=== PATIENT | female | born 1970 | race Caucasian/White ===

== ENCOUNTER 2019-09-17 22:33 | Inpatient (IN) | payer OTHER ==
[~2019-09-17] VITALS: Ht 162.6 cm; Wt 63.5 kg
--- NOTE | ~2019-09-17 | H ---
[facility] [address] [address] HISTORY AND PHYSICAL Name: AHMET ARBOLEDA Room #: 219-P ADM IN M.R.#: [id number] Admission: 09/17/19 Attend Phys: Jaquan Luna MD, Discharge: Date of : 68 Report #: [id number] THIS REPORT FOR: //name// CC: Dr. 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 Patient of Dr. Wu. She has been having stuttering chest pain for the last month or so and marked increase in fatigue. Tonight became markedly worse with sudden onset of burning in her chest and then pain and burning in her bilateral arms. Thought it was indigestion, but then subsequently came to the Emergency Room in [place] at [facility], had an inferior current of injury, consistent with an inferior wall STEMI. No prior cardiac history. She is a tobacco user and no significant family history. She takes no medications. Has occasionally taken albuterol in the past. HOME MEDICATIONS: Have been intermittently albuterol, cyclobenzaprine, ibuprofen, omeprazole, but not on a regular basis and 0.5 Xanax t.i.d. PAST MEDICAL HISTORY: Positive for bladder ablation, some anxiety, tobacco use, neck pain. FAMILY HISTORY: Negative for premature coronary artery disease. SOCIAL HISTORY: She is , 4 children. 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 Social drinker, a pack a day smoker. REVIEW OF SYSTEMS: Essentially negative except for stated above. There was a marked increase in fatigue last month or two. PHYSICAL EXAMINATION: GENERAL: Pleasant, alert. VITAL SIGNS: Blood pressure was 136/76, pulse was 60s and regular. HEENT: Eyes reveal xanthelasmas. Pharynx is clear. NECK: Shows preserved upstrokes without JVD or bruits. LUNGS: Slightly prolonged expiratory phase. CARDIOVASCULAR: Regular rate and rhythm. S1, S2 distant. ABDOMEN: Soft. No HSM or abdominal bruit, slightly tender in the epigastric area. EXTREMITIES: Reveal diminished distal pulses, but intact. NEUROLOGIC: Nonfocal. SKIN: Warm and dry without xanthoma or ulcer. [facility] [address] [place] [address] HISTORY AND PHYSICAL Name: AHMET ARBOLEDA [facility] M.R.#: [id number] Admission: 09/17/19 Attend Phys: Jaquan Luna MD, Discharge: Date of : 68 Report #: [id number] MUSCULOSKELETAL: No gross joint deformity. ASSESSMENT: 1. Acute inferior wall ST segment elevated myocardial infarction. 2. Continued tobacco use, suspected underlying chronic obstructive pulmonary disease. 3. Anxiety disorder. 4. Status post bladder ablation. RECOMMENDATIONS AND PLAN: Received heparin, aspirin and statin in [facility], is here by ground ambulance. Still with significant ST elevation in the inferior leads and anterior ST depression reciprocally. Pain is improved; however, with the heparin. Suspect there is some collateralization. Will go emergently to the brush clearing laborer and intervention is indicated. Risks, benefits, alternatives were discussed with the patient and we are proceeding, the family is en route. By: [id number] /nt
[2019-09-18] VITALS (15 sets, daily range): BP systolic 102–127; BP diastolic 57–75
[2019-09-18] MEDS ORDERED: XANAX 0.5 MG0.5 MG PO (01:04)
[2019-09-18] MEDS ORDERED: MELATONIN5 MG PO (01:05)
--- NOTE | 2019-09-18 02:43 | NUR ---
ADMIT:PT ADMITTED FROM [facility] AFTER A CARDIAC CATHERIZATION PROCEDURE WITH [facility].PT ARRIVED TO UNIT VIA BED ACCOMPANIED BY [facility].PT AWAKE,A/OX4,IN NO ACUTE DISTRESS.RIGHT GROIN W/O HEMATOMA OR ACTIVE BLEEDING.VSS.SINUS RHYTHM ON MONITOR.ON INTERGLIN DRIP AND NS INFUSIING.DR JULIAN CALLED AND ORDERS GIVEN,SEE MAR.EKG UPON ARRIVAL TO UNIT.POST CARDIAC [facility], PT EDUCATED ON THE CARDIAC [facility] PRECAUTIONS AND ACTIVITIES.ON BEDRESTX3 HRS.PT VOICED UNDERSTANDING.MED RECONCILLED.ORIENTED PATIENT TO ,CALL LIGHT SYSTEM.PT DENIES ANY NEEDS AT THIS TIME.WILL CONT TO MONITOR PER POC.
[2019-09-18 05:03] LABS: HEMATOCRIT 39.1 % (37.0-47.0); HEMOGLOBIN 13.1 gm/dL (12.0-15.0); MCH 30.5 pg (26.0-34.0); MCHC 33.6 g/dL (28.0-37.0); MCV 90.6 fL (80.0-100.0); RBC 4.31 mil/uL (4.20-5.00); RDW 14.5 % (10.5-14.5)
[2019-09-18 05:21] LABS: ANION GAP 9 mmol/L (7-16); BUN 16 mg/dL (7-18); CALCIUM 8.1 mg/dL (8.5-10.1); CHLORIDE 104 mmol/L (98-107); CHOLESTEROL 203 mg/dL (<200); CO2 26 mmol/L (21-32); CREATININE 0.7 mg/dL (0.6-1.0); GLUCOSE 124 mg/dL (74-106); HDL CHOLESTEROL 37 mg/dL (>40); LDL CHOLESTEROL 138 mg/dL (<100); POTASSIUM 3.9 mmol/L (3.5-5.1); SODIUM 139 mmol/L (136-145); TC:HDL 5.5 Ratio (Not establshd); TRIGLYCERIDE 143 mg/dL (<150); VLDL 29 mg/dL (<40)
[2019-09-18 05:22] LABS: SERUM ASSESSMENT Clear
--- NOTE | 2019-09-18 16:54 | NUR ---
ASSESSMENT CHARTED. PT ALERT AND ORIENTED. VSS. DENIED HAVING PAIN OR DISCOMFORT. RIGHT GROIN INCISION C/D/I. NO HEMATOMA NOTED. RECEIVED PRN ZOFRAN FOR NAUSEA WITH RELIEF. TOLERATED DIET WELL. NO CARDIAC DISTRESS NOTED. WILL CONTINUE TO MONITOR.
[2019-09-19 00:56] VITALS: BP 100/57
[2019-09-19 03:52] VITALS: BP 114/70
--- NOTE | 2019-09-19 03:52 | NUR ---
ASSESSMENT CHARTED. VSS. PT DENIES CP, N/V, DIZZINESS, OR SOA. RIGHT GROIN SITE CDI NO HEMATOMA. STEADY TO BATHROOM. HOPEFUL TO D/C TODAY. WILL CONTINUE TO MONITOR AND WITH POC.
[2019-09-19 07:44] VITALS: BP 127/72
[2019-09-19] MEDS ORDERED: EFFIENT10 MG PO (08:08)
[2019-09-19] MEDS ORDERED: TOPROL XL25 MG PO (08:08)
[2019-09-19] MEDS ORDERED: ASPIRIN325 PO (08:08)
[2019-09-19] MEDS ORDERED: LIPITOR40 MG PO (08:08)
--- NOTE | 2019-09-19 09:12 | EKG ---
[address] [place] [address] ELECTROCARDIOGRAM REPORT Name: AHMET ARBOLEDA Room #: 219-P [facility] IN M.R.#: [id number] Admission: 09/17/19 Attend Phys: Jaquan Luna MD, Discharge: Date of : 68 Report #: [id number] THIS REPORT FOR: //name// [facility] ED Test Date: 2019-09-17 Test Time: 22:51:13 Pat Name: AHMET ARBOLEDA Department: Room: Gender: F Hunter Guide: farzad : 1970 Requested By: Jaquan Luna Order Number: [id number] MD: Leroy Merino Measurements Intervals [place] Rate: 56 P: 48 [place]: 166 QRS: 32 QRSD: 97 T: 100 QT: 426 QTc: 412 Interpretive Statements Sinus rhythm Inferior infarct, acute No previous ECG available for comparison Electronically Signed On 09-19-2019 9:12:43 CDT by Leroy Merino [email or web address] <ELECTRONICALLY SIGNED> By: Leroy Merino MD, [facility] 09/19/19 0912 2251 225 Leroy Merino MD, FACC /EPI
--- NOTE | 2019-09-19 09:14 | EKG ---
[address] [address] ELECTROCARDIOGRAM REPORT Name: AHMET ARBOLEDA Room #: 219-P ADM IN M.R.#: [id number] Admission: 09/17/19 Attend Phys: Jaquan Luna MD, Discharge: Date of : 68 Report #: [id number] THIS REPORT FOR: //name// [facility] Test Date: 2019-09-18 Test Time: 00:30:10 Pat Name: AHMET ARBOLEDA Department: Room: 219 P Gender: F Specification Consultant: shanice : 1970 Requested By: Jaquan Luna Order Number: [id number] MD: Leroy Merino Measurements Intervals [place] Rate: 73 P: 72 [place]: 174 QRS: 19 QRSD: 95 T: -53 QT: 429 QTc: 473 Interpretive Statements Sinus rhythm Inferior infarct, age indeterminate Lateral leads are also involved No previous ECG available for comparison Electronically Signed On 09-19-2019 9:13:48 CDT by Leroy Merino [email or web address] <ELECTRONICALLY SIGNED> By: Leroy Merino MD, [facility] 09/19/19 0913 D: 10/29 Leroy Merino MD, FACC /EPI
--- NOTE | 2019-09-19 09:15 | EKG ---
[address] [place] [address] ELECTROCARDIOGRAM REPORT Name: AHMET ARBOLEDA Room #: 219-P ADM IN M.R.#: [id number] Admission: 09/17/19 Attend Phys: Jaquan Luna MD, Discharge: Date of : 68 Report #: [id number] THIS REPORT FOR: //name// [facility] Test Date: 2019-09-18 Test Time: 07:36:20 Pat Name: AHMET ARBOLEDA Department: Room: 219 P Gender: F Manager Psychiatry: vamshi : 1970 Requested By: Jaquan Luna Order Number: [id number] MD: Leroy Merino Measurements Intervals [place] Rate: 64 P: 68 [place]: 151 QRS: -3 QRSD: 87 T: -45 QT: 434 QTc: 448 Interpretive Statements Sinus rhythm Inferior infarct, recent No previous ECG available for comparison Electronically Signed On 09-19-2019 9:15:31 CDT by Leroy Merino [email or web address] <ELECTRONICALLY SIGNED> By: Leroy Merino MD, [facility] 09/19/19 0915 0736 0736 Leroy Merino MD, FACC /EPI
[2019-09-19] MEDS ORDERED: COZAAR 25 MG TA25 M1 PO (09:38)
--- NOTE | 2019-09-19 09:39 | 2DMMODE ---
[facility] [address] [place] [address] 2 D/M-MODE ECHOCARDIOGRAM Name: AHMET ARBOLEDA Room #: 219-P ADM IN M.R.#: [id number] Admission: 09/17/19 Attend Phys: Jaquan Luna, Discharge: Date of : 68 Report #: [id number] THIS REPORT FOR: //name// APPROVED REPORT Study performed: 09/19/2019 08:13:18 EXAM: Comprehensive 2D, Doppler, and color-flow Echocardiogram Patient Location: Echo lab Room #: 219 Status: routine BSA: 1.68 HR: 78 bpm BP: 114/70 mmHg Rhythm: NSR Other Information Study Quality: Adequate Indications STEMI s/p Stent. Hx: HLP, COPD, tobacco. 2D Dimensions RVDd: 25.72 mm IVSd: 10.42 (7-11mm) LVOT Diam: 20.06 (18-24mm) LVDd: 44.75 mm PWd: 9.95 (7-11mm) LVDs: 33.66 (25-40mm) Aortic Root: 32.01 mm Volumes Left Atrial Volume (Systole) Single Plane 4CH: 23.03 mL Single Plane 2CH: 47.28 mL LA ESV Index: 22.00 mL/m2 Aortic Valve AoV Peak Chris.: 1.39 m/s AO Peak Gr.: 7.69 mmHg LVOT Max P.56 mmHg LVOT Max V: 1.18 m/s MILY Vmax: 2.69 cm2 Mitral Valve E/A Ratio: 0.8 MV Decel. Time: 237.52 ms MV E Max Chris.: 0.72 m/s [facility] [address] [place] [address] 2 D/M-MODE ECHOCARDIOGRAM Name: AHMET ARBOLEDA Room #: 219-[facility] IN [facility]#: [id number] Admission: 09/17/19 Attend Phys: Jaquan Luna, Discharge: Date of : 68 Report #: [id number] MV A Chris.: 0.88 m/s MV PHT: 68.88 ms IVRT: 86.51 ms Pulmonary Valve PV Peak Chris.: 0.85 m/s PV Peak Gr.: 2.91 mmHg Pulmonary Vein P Vein S: 0.50 m/s P Vein A: 0.27 m/s P Vein D: 0.37 m/s P Vein A Dur.: 128.0 msec P Vein S/D Ratio: 1.35 Tricuspid Valve TR Peak Chris.: 2.16 m/s RAP Estimate: 5.00 mmHg TR Peak Gr.: 19.00 mmHg PA Pressure: 24.00 mmHg Left Ventricle The left ventricle is normal size. There is normal left ventricular wall thickness. Left ventricular systolic function is normal. Minimal hypokinesis of base of inferior wall LVEF is 50-55%. Mild diastolic dysfunction is present (impaired relaxation pattern). Right Ventricle The right ventricle is normal size. The right ventricular systolic function is normal. Atria The left atrium size is normal. The right atrium size is normal. Aortic Valve The aortic valve is normal in structure. No aortic regurgitation is present. There is no aortic valvular stenosis. Mitral Valve The mitral valve is normal in structure. Mild mitral regurgitation. Tricuspid Valve The tricuspid valve is normal in structure. Trace to mild tricuspid regurgitation. Estimated PAP is 25mmHg. Pulmonic Valve The pulmonary valve is normal in structure. There is no pulmonic valvular regurgitation. [facility] [address] [place] [address] 2 D/M-MODE ECHOCARDIOGRAM Name: AHMET ARBOLEDA Room #: 219-P [facility] IN M.R.#: [id number] Admission: 09/17/19 Attend Phys: Jaquan Luna, Discharge: Date of : 68 Report #: [id number] Great Vessels The aortic root is normal in size. Ascending aorta is not well visualized. IVC is normal in size and collapses >50% with inspiration. Pericardium There is no pericardial effusion. <Conclusion> Left ventricular systolic function is normal. Minimal hypokinesis of base of inferior wall LVEF is 50-55%. Mild diastolic dysfunction The aortic valve is normal in structure. No aortic regurgitation or stenosis. The mitral valve is normal in structure. Mild mitral regurgitation. Trace to mild tricuspid regurgitation. Estimated pulmonary artery pressure of 25mmHg. There is no pericardial effusion. The aortic valve is normal in structure. Mild mitral regurgitation. Trace to mild tricuspid regurgitation. Estimated PAP is 25mmHg. <ELECTRONICALLY SIGNED> By: Jaquan Luna MD, FACC 09/19/19938 8 8 Jaquan Luna MD, FACC /INF
[2019-09-19 10:10] VITALS: BP 127/72
--- NOTE | 2019-09-19 10:45 | NUR ---
ASSUMED CARE AT SHIFT CHANGE, ALERT AND ORIENTED X4. DENIES ANY CP OR DISCOMFORT. DISCAHRGE AND MEDICATION INSTRUCTION GIVEM TO PATIENT AND SHE VERBALIZED UNDERSTANDING. PATIENT DISCHARGED HOME.
--- NOTE | 2019-09-19 17:14 | EKG ---
[address] [address] ELECTROCARDIOGRAM REPORT Name: AHMET ARBOLEDA Room #: 219- DIS IN M.R.#: [id number] Admission: 09/17/19 Attend Phys: Jaquan Luna MD, Discharge: 09/19/19 Date of : 68 Report #: [id number] THIS REPORT FOR: //name// [facility] Test Date: 2019-09-19 Test Time: 09:11:27 Pat Name: AHMET ARBOLEDA Department: Room: 219 Gender: F Clinical Outcomes Manager: Ligia TOURE : 1970 Requested By: Jaquan Luna Order Number: [id number] MD: Leroy Merino Measurements Intervals [place] Rate: 72 P: 49 IN: 128 QRS: -8 QRSD: 82 T: -68 QT: 452 QTc: 495 Interpretive Statements Sinus rhythm Inferoposterior infarct, age indeterminate Compared to ECG 09/17/2019 22:51:13 lateral T wave inversion is now present Electronically Signed On 09-19-2019 17:14:31 CDT by Leroy Merino [email or web address] <ELECTRONICALLY SIGNED> By: Leroy Merino MD, FAC 09/19/19 1714 0911 Leroy Merino MD, FAC /EPI
--- NOTE | 2019-09-21 22:20 | CATHLAB ---
[facility] [address] [place] [address] INVASIVE PROCEDURE REPORT Name: AHMET ARBOLEDA Room #: 219-P [facility] IN .R.#: [id number] Admission: 09/17/19 Attend Phys: Jaquan Luna, Discharge: 09/19/19 Date of : 68 Report #: [id number] THIS REPORT FOR: //name// APPROVED REPORT Study performed: 09/17/2019 22:45:25 Patient Details Patient Status: In-Patient Room #: The patient is a 48 year-old female Event Personnel Jaquan Luna Aircraft Manager, Ramses Villanueva RN, Chet, Cindy Monitor, Kee Beavers RTR Scrub Procedures Performed Art Access - R femoral artery* 50127 Initial Mod Sed Same Phys/QHP Gr5y 750722 39121 Mod Sed Same Phys/QHP Ea 958254 Left Heart Cath w/or w/o Coronaries [id number] [facility] XOCHITL Revasc AMI Total/Sub Single RCA C9606 AMIREVSING Aortogram Abdominal Peripheral Angio 974160 Hemostasis w/ Mynx Indication STEMI Procedure Narrative The patient was brought emergently to the Cardiac Catheterization Laboratory and was prepped and draped in a sterile manner. The Right Groin^ was infiltrated with 1% Lidocaine subcutaneous anesthesia. A PINNACLE 6FR Sheath #[id number] sheath was inserted into the RFA^. Coronary angiography was performed using coronary diagnostic catheters. The right coronary system was accessed and visualized with a LAUNCHER 6FR JR 4 #[id number] catheter. The left coronary system was accessed and visualized with a JL 4 catheter. The left ventricle was accessed and visualized with a Pigtail catheter. Left ventriculogram was performed in RINCON projection. An aortogram of the abdominal aorta was performed. Closure device was deployed with a 6 Fr Mynx. The patient tolerated the procedure well and there were no complications associated with the procedure. There was no hematoma. Intraoperative Conscious Sedation Sedation start time: 22:55 Case end Time: 23:44 Fentanyl 50 mcg Versed [address] [address] INVASIVE PROCEDURE REPORT Name: AHMET ARBOLEDA Room #: 219-P [facility] IN [facility].#: [id number] Admission: 09/17/19 Attend Phys: Jaquan Luna, Discharge: 09/19/19 Date of : 68 Report #: [id number] Fluoro Time: 6.38 minutes Dose: DAP 7311.00 cGycm2 944 mGy Contrast Type and Amount: Visipaque 175 ml Hemodynamics The aortic pressure is 157/87 mmHg with a mean of 117 mmHg. The left ventricular pressure is 145/3 mmHg with a mean of mmHg. The left ventricular end diastolic pressure is 22 mmHg. PCI Technique Lesion Percutaneous coronary intervention was performed on the proximal right coronary artery. A LAUNCHER 6FR JR 4 #[id number] Guide Catheter was used to engage the ostium. A Luge Wire .014 x 182CM #[id number] Interventional Guidewire was used to cross the lesion. BALLOON DILATION A Balloon catheter Sprinter OTW 2.5 x 12 #[id number] was inserted and inflated up to 14.00atm for 19seconds. STENT DEPLOYMENT A drug-eluting stent RESOLUTE JUAREZ OTW 3.0 X 26 #[id number] was inserted and inflated up to 16.00atm for 21seconds. PCI Technique Lesion 2 Percutaneous Coronary Intervention was performed on the mistal right coronary artery. A LAUNCHER 6FR JR 4 #[id number] Guide Catheter was used to engage the ostium. A Luge Wire .014 x 182CM #[id number] Interventional Guidewire was used to cross the lesion. Stent Deployment A drug-eluting stent RESOLUTE JUAREZ OTW 3.0 X 18 #[id number] was inserted and inflated up to 16.00atm for 24seconds. Additional Inflation: 18.00atm for 14seconds. Additional Inflation: 18.00atm for 16seconds. Conclusion #1 successful emergent PTCA stent of an acute infarct vessel dominant right coronary artery totally occluded proximal. High-grade proximal mid and mid-distal long lesions. 30 by 26 and 30 by 18 resolute Juarez drug-eluting stent postdilated 3.3 mm YAMSINE grade 3 flow #2 left main with mild disease giving rise to LAD and circumflex #3 mild LAD disease extends to the apex there is collateral filling of the occluded dominant right coronary artery #4 circumflex nondominant with an eccentric 30-40% proximal lesion #5 normal left ventricular size with inferior basilar hypokinesis EF 50% range [facility] [address] [place] [address] INVASIVE PROCEDURE REPORT Name: AHMET ARBOLEDA Room #: 219-P DIS IN Leonardo.Sharmila.#: [id number] Admission: 09/17/19 Attend Phys: Jaquan Luna, Discharge: 09/19/19 Date of : 68 Report #: [id number] #6 abdominal aorta intact without evidence of aneurysm or significant stenosis. Recommendations and plan: Continue aggressive risk factor modification will follow post stent protocol. Patient has resolution of EKG changes and chest pain. Transfer to CCU to follow stent protocol. <ELECTRONICALLY SIGNED> By: Jaquan Luna MD, FACC 09/21/192219 19 19 Jaquan Luna MD, FACC /INF
== END 2019-09-19 11:01 | disposition home or self-care (01) | DRG 246 ==
LOC: 2N 22:33
PROVIDERS: ADMIT Internal Medicine Cardiovascular Disease
PROC: 027035Z Dilation of Coronary Artery, One Artery with Two Drug-eluting Intraluminal Devices, Percutaneous Approach (ICD-10-PCS; principal; 2019-09-17)
PROC: B410YZZ Fluoroscopy of Abdominal Aorta using Other Contrast (ICD-10-PCS; principal; 2019-09-17)
PROC: 4A023N7 Measurement of Cardiac Sampling and Pressure, Left Heart, Percutaneous Approach (ICD-10-PCS; principal; 2019-09-17)
PROC: B211YZZ Fluoroscopy of Multiple Coronary Arteries using Other Contrast (ICD-10-PCS; principal; 2019-09-17)
PROC: B215YZZ Fluoroscopy of Left Heart using Other Contrast (ICD-10-PCS; principal; 2019-09-17)
DX: I21.19 ST elevation (STEMI) myocardial infarction involving other coronary artery of inferior wall (principal); I50.33 Acute on chronic diastolic (congestive) heart failure; F41.9 Anxiety disorder, unspecified; E78.00 Pure hypercholesterolemia, unspecified; E78.5 Hyperlipidemia, unspecified; F17.210 Nicotine dependence, cigarettes, uncomplicated; Z53.29 Procedure and treatment not carried out because of patient's decision for other reasons; Z79.1 Long term (current) use of non-steroidal anti-inflammatories (NSAID); Z79.899 Other long term (current) drug therapy; Z71.6 Tobacco abuse counseling
CPT/HCPCS: 10081

== ENCOUNTER → 2020-08-07 | Outpatient (CLI) | payer OTHER ==
[~2020-08-07] MED LIST: ASPIRIN325 PO; COZAAR 25 MG TA25 M1 PO; EFFIENT10 MG PO; LIPITOR40 MG PO; MELATONIN5 MG PO; TOPROL XL25 MG PO; XANAX 0.5 MG0.5 MG PO
== END ==
LOC: SJCVCIMAG 07:31
PROVIDERS: ATTEND Internal Medicine Cardiovascular Disease
DX: Z01.818 Encounter for other preprocedural examination (principal); I49.1 Atrial premature depolarization; I25.10 Atherosclerotic heart disease of native coronary artery without angina pectoris; I25.5 Ischemic cardiomyopathy; E78.00 Pure hypercholesterolemia, unspecified; I25.2 Old myocardial infarction; F17.200 Nicotine dependence, unspecified, uncomplicated; Z98.61 Coronary angioplasty status